=== PATIENT | male | born 1965 | race African-American/Black ===

== ENCOUNTER 2019-02-28 17:38 | Inpatient (IN) | payer SELFPAY ==
[2019-02-28] MEDS: METOPROLOL TAR 50 MG TAB PO SCH ×2 (09:00→23:30)
--- OUTSIDE RECORDS SUMMARY | 2019-02-28 17:40 | XMS REPORT ---
:1965 [facility] Address [address] [place] [address] Care Team Providers Name Role Phone Unavailable Unavailable Unavailable Problems This patient has no known problems. Allergies, Adverse Reactions, Alerts This patient has no known allergies or adverse reactions. Medications This patient has no known medications.
[2019-02-28 19:39] LABS: Absolute Lymphocytes (CBC) 1.8 K/uL (0.7-4.9); Basophils % 1.3 % (0-1.3); Hematocrit 41.1 % (39.6-49.0); Lymphocytes % 19.3 % (15.3-44.8); MPV 10.7 fL (7.6-11.3); RBC Red Blood Cell Count 4.52 M/uL (4.33-5.43)
[2019-02-28 19:41] LABS: Protime INR 1.11
--- NOTE | 2019-02-28 19:55 | RAD REPORT ---
EXAM DESCRIPTION: RAD - Chest Pa And Lat (2 Views) - 02/28/2019 7:46 pm CLINICAL HISTORY: COUGH Chest pain. COMPARISON: No comparisons FINDINGS: The lateral projection is quite limited due to motion artifact. Frontal projection demonst rates grossly clear lungs. The heart is moderately enlarged in size. No fracture evident.
[2019-02-28 20:01] LABS: Albumin 2.9 g/dL (3.4-5.0); Bilirubin Direct 0.2 mg/dL (0-0.2); Bilirubin Total 0.6 mg/dL (0.2-1.0); Magnesium 1.7 mg/dL (1.8-2.4); Protein, Total 7.3 g/dL (6.4-8.2)
[2019-02-28 20:03] LABS: Potassium 2.7 mmol/L (3.5-5.1)
[2019-02-28 20:04] LABS: Troponin (Emerg Dept Use Only) 1.81 ng/mL (0.0-0.045)
[2019-02-28] MEDS ORDERED: POTASSIUM 25 MEQ EFFERV TAB ONE (20:16)
[2019-02-28] MEDS ORDERED: MAGNESIUM SULFATE 1 gm IVPB 1 GM/100 ML BAG IV ONE (20:16)
--- NOTE | 2019-02-28 20:21 | EDPHYS ---
Physician Documentation [facility] Name: Maximilian Majano Age: 54 yrs Sex: Male : 1965 Arrival Date: 02/28/2019 Time: 17:42 Bed 28 Private MD: ED Physician Errol Eng HPI: 02/28 18:59 This 54 yrs old Black Male presents to ER via Ambulatory with complaints of Cough, pm1 Congestion, Hemopytsis. 18:59 The patient or guardian reports cough, with productive sputum, that is bloody. Onset: pm1 The symptoms/episode began/occurred 3 day(s) ago. Severity of symptoms: in the emergency department the symptoms are actually worse. Modifying factors: The symptoms are alleviated by nothing, the symptoms are aggravated by nothing. Associated signs and symptoms: Pertinent negatives: chest pain, fever, sore throat, shortness of breath. The patient has not recently seen a physician, out of town. Patient with history of CHF that reports cough, congestion and hemoptysis for the past 3 days. Denies any chest pain, shortness of breath, or fever. Reports similar presentation with onset and diagnosis of CHF about 6 years ago. Historical: - Allergies: 18:05 No Known Allergies; aa5 - PMHx: 18:05 Hypertension; CHF; aa5 - PSHx: 18:05 L shoulder; Abdominal mass removed; Carpal Tunnel Repair; aa5 - Immunization history:: Flu vaccine is not up to date. - Social history:: Smoking status: Patient/guardian denies using tobacco. - Ebola Screening: : No symptoms or risks identified at this time. ROS: 18:59 Constitutional: Negative for fever, chills, and weight loss, Eyes: Negative for injury, pm1 pain, redness, and discharge, ENT: Negative for injury, pain, and discharge, Neck: Negative for injury, pain, and swelling, Cardiovascular: Negative for chest pain, palpitations, and edema. 18:59 Abdomen/GI: Negative for abdominal pain, nausea, vomiting, diarrhea, and constipation, Back: Negative for injury and pain, : Negative for injury, bleeding, discharge, and swelling, MS/Extremity: Negative for injury and deformity, Skin: Negative for injury, rash, and discoloration, Neuro: Negative for headache, weakness, numbness, tingling, and seizure. 18:59 Respiratory: Positive for cough, hemoptysis, Negative for shortness of breath, wheezing. Exam: 18:59 Constitutional: This is a well developed, well nourished patient who is awake, alert, pm1 and in no acute distress. Head/Face: Normocephalic, atraumatic. Eyes: Pupils equal round and reactive to light, extra-ocular motions intact. Lids and lashes normal. Conjunctiva and sclera are non-icteric and not injected. Cornea within normal limits. Periorbital areas with no swelling, redness, or edema. ENT: Nares patent. No nasal discharge, no septal abnormalities noted. Tympanic membranes are normal and external auditory canals are clear. Oropharynx with no redness, swelling, or masses, exudates, or evidence of obstruction, uvula midline. Mucous membranes moist. Neck: Trachea midline, no thyromegaly or masses palpated, and no cervical lymphadenopathy. Supple, full range of motion without nuchal rigidity, or vertebral point tenderness. No Meningismus. Chest/axilla: Normal chest wall appearance and motion. Nontender with no deformity. No lesions are appreciated. Cardiovascular: Regular rate and rhythm with a normal S1 and S2. No gallops, murmurs, or rubs. Normal PMI, no JVD. No pulse deficits. 18:59 Abdomen/GI: Soft, non-tender, with normal bowel sounds. No distension or tympany. No guarding or rebound. No evidence of tenderness throughout. Back: No spinal tenderness. No costovertebral tenderness. Full range of motion. Skin: Warm, dry with normal turgor. Normal color with no rashes, no lesions, and no evidence of cellulitis. MS/ Extremity: Pulses equal, no cyanosis. Neurovascular intact. Full, normal range of motion. 18:59 Respiratory: the patient does not display signs of respiratory distress, Respirations: normal, Breath sounds: rales, are located in both bases. 18:59 Neuro: Orientation: is normal, Motor: is normal, moves all fours. Vital Signs: 18:05 BP 153 / 101; Pulse 83; Resp 18 S; Temp 98.5(O); Pulse Ox 96% on R/A; Weight 140.16 kg aa5 (R); Height 5 ft. 8 in. (172.72 cm) (R); 19:30 BP 154 / 97; Pulse 74; Resp 18 S; Pulse Ox 98% on R/A; Pain 0/10; cc3 20:31 BP 158 / 97; Pulse 73; Resp 17 S; Pulse Ox 96% on R/A; cc3 21:35 BP 143 / 85; Pulse 70; Resp 17 S; Pulse Ox 96% on R/A; cc3 22:30 BP 130 / 74; Pulse 70; Resp 17 S; Pulse Ox 96% on R/A; Pain 0/10; cc3 18:05 Body Mass Index 46.98 (140.16 kg, 172.72 cm) aa5 MDM: 18:36 Patient medically screened. pm1 20:16 Data reviewed: vital signs. Data interpreted: Pulse oximetry: on room air is 96 %. pm1 Interpretation: normal. Counseling: I had a detailed discussion with the patient and/or guardian regarding: the historical points, exam findings, and any diagnostic results supporting the discharge/admit diagnosis, lab results, radiology results, the need for further work-up and treatment in the hospital. 02/28 18:46 Order name: Basic Metabolic Panel; Complete Time: 20:06 pm1 02/28 18:46 Order name: CBC with Diff; Complete Time: 20:03 pm1 02/28 18:46 Order name: LFT's; Complete Time: 20:06 pm1 02/28 18:46 Order name: Magnesium; Complete Time: 20:06 pm1 02/28 18:46 Order name: NT PRO-BNP; Complete Time: 20:06 pm1 02/28 18:46 Order name: PT-INR; Complete Time: 20:03 pm1 02/28 18:46 Order name: Troponin (emerg Dept Use Only); Complete Time: 20:06 pm1 02/28 22:01 Order name: CBC with Automated Diff EDMS 02/28 22:01 Order name: CBC with Automated Diff EDMS 02/28 22:01 Order name: Comprehensive Metabolic Panel EDMS 02/28 22:01 Order name: Comprehensive Metabolic Panel EDMS 02/28 22:01 Order name: Magnesium EDMS 02/28 22:01 Order name: Magnesium EDMS 02/28 22:01 Order name: Phosphorus EDMS 02/28 18:46 Order name: EKG; Complete Time: 18:47 pm1 02/28 18:46 Order name: Chest Pa And Lat (2 Views) XRAY; Complete Time: 20:03 pm1 02/28 20:59 Order name: CT Chest For PE Angio pm1 02/28 22:00 Order name: CONS Physician Consult EDMS 02/28 22:00 Order name: Echo with Doppler EDMS 02/28 22:01 Order name: Phosphorus EDMS 02/28 22:01 Order name: NT PRO-BNP EDMS 02/28 22:01 Order name: NT PRO-BNP EDMS 02/28 22:01 Order name: Troponin I EDMS 02/28 22:01 Order name: Troponin I; Complete Time: 23:40 EDMS 02/28 22:01 Order name: Troponin I EDMS 03/01 04:12 Order name: Urine Dipstick-Ancillary; Complete Time: 04:13 EDMS 02/28 18:46 Order name: Cardiac monitoring; Complete Time: 19:10 pm1 02/28 18:46 Order name: EKG - Nurse/Tech; Complete Time: 19:24 pm1 02/28 18:46 Order name: IV Saline Lock; Complete Time: 19:24 pm1 02/28 18:46 Order name: Labs collected and sent; Complete Time: 19:24 pm1 02/28 18:46 Order name: O2 Per Protocol; Complete Time: 19:11 pm1 02/28 18:46 Order name: O2 Sat Monitoring; Complete Time: 19:11 pm1 02/28 22:00 Order name: CONS Physician Consult EDAZ 02/28 22:00 Order name: Heart Healthy EDAZ 02/28 22:00 Order name: EKG Electrocardiogram EDAZ 02/28 22:00 Order name: EKG Electrocardiogram EDAZ Administered Medications: 20:15 Drug: Potassium Effervescent Tablet 50 mEq Route: PO; cc3 20:30 Follow up: Response: No adverse reaction cc3 20:20 Drug: Magnesium Sulfate 1 grams Route: IVPB; Infused Over: 1 hrs; Site: right cc3 antecubital; 22:00 Follow up: Response: No adverse reaction; IV Status: Completed infusion; IV Intake: cc3 100ml 20:35 Drug: Aspirin 325 mg Route: PO; cc3 21:00 Follow up: Response: No adverse reaction cc3 20:40 Drug: Furosemide 40 mg Route: IVP; Site: right antecubital; cc3 21:00 Follow up: Response: No adverse reaction cc3 Disposition: 03/02 08:09 Co-signature as Attending Physician, Errol Eng MD I agree with the assessment and kdr plan of care. Disposition: 02/28/19 20:19 Hospitalization ordered by Lan Goff for Observation. Preliminary diagnosis are Acute on chronic combined systolic (congestive) and diastolic (congestive) heart failure, Hemoptysis. - Bed requested for Telemetry/MedSurg (observation). - Status is Observation. aa5 - Condition is Stable. - Problem is new. - Symptoms have improved. UTI on Admission? No Signatures: Dispatcher [employer] EDMS Errol Eng MD MD [facility] Brielle Fry RN RN aa5 Jodi Blake RN RN cg John Lind, DARLENE THIRD RIGGER pm1 Cherelle Ruvalcaba cc3 Corrections: (The following items were deleted from the chart) 02/28 21:59 20:19 Hospitalization Ordered by Lan Goff MD for Observation. Preliminary cg diagnosis is Acute on chronic combined systolic (congestive) and diastolic (congestive) heart failureHemoptysis. Bed requested for Telemetry/MedSurg (observation). Status is Observation. Condition is Stable. Problem is new. Symptoms have improved. UTI on Admission? No. pm1 03/01 05:24 02/28 21:59 02/28/2019 20:19 Hospitalization Ordered by Lan Goff MD for cg Observation. Preliminary diagnosis is Acute on chronic combined systolic (congestive) and diastolic (congestive) heart failureHemoptysis. Bed requested for [facility] ER HOLD. Status is Observation. Condition is Stable. Problem is new. Symptoms have improved. UTI on Admission? No. cg 03/01 08:29 05:24 02/28/2019 20:19 Hospitalization Ordered by Lan Goff MD for Observation. aa5 Preliminary diagnosis is Acute on chronic combined systolic (congestive) and diastolic (congestive) heart failureHemoptysis. Bed requested for Telemetry/MedSurg (observation). Status is Observation. Condition is Stable. Problem is new. Symptoms have improved. UTI on Admission? No. cg
--- NOTE | 2019-02-28 20:21 | ER ---
Nurse's Notes [facility] Name: Maximilian Majano Age: 54 yrs Sex: Male : 1965 Arrival Date: 02/28/2019 Time: 17:42 Bed 28 [facility] [place] MD: Diagnosis: Hemoptysis;Acute on chronic combined systolic (congestive) and diastolic (congestive) heart failure Presentation: 02/28 18:03 Presenting complaint: Patient states: cough and chest congestion that began 2-3 days aa5 ago. Transition of care: patient was not received from another setting of care. Onset of symptoms was January 2019. Risk Assessment: Do you want to hurt yourself or someone else? Patient reports no desire to harm self or others. Initial Sepsis Screen: Does the patient meet any 2 criteria? No. Patient's initial sepsis screen is negative. Does the patient have a suspected source of infection? No. Patient's initial sepsis screen is negative. Care prior to arrival: None. 18:03 Method Of Arrival: Ambulatory aa5 18:03 Acuity: HEMALATHA 3 aa5 Historical: - Allergies: 18:05 No Known Allergies; aa5 - PMHx: 18:05 Hypertension; CHF; aa5 - PSHx: 18:05 L shoulder; Abdominal mass removed; Carpal Tunnel Repair; aa5 - Immunization history:: Flu vaccine is not up to date. - Social history:: Smoking status: Patient/guardian denies using tobacco. - Ebola Screening: : No symptoms or risks identified at this time. Screenin:10 Abuse screen: Denies threats or abuse. Abuse screen: Denies injuries from another. ca1 Nutritional screening: No deficits noted. Tuberculosis screening: No symptoms or risk factors identified. Fall Risk None identified. Assessment: 18:10 General: Appears in no apparent distress. comfortable, Behavior is calm, cooperative, ca1 appropriate for age. Pain: Denies pain. Neuro: Level of Consciousness is awake, alert, obeys commands, Oriented to person, place, time, situation. Cardiovascular: Heart tones S1 S2 present Capillary refill < 3 seconds Patient's skin is warm and dry. Edema is 1+ to left ankle and right ankle. Respiratory: Sputum is thin, blood streaked. Respiratory: Reports cough that is persistent since a year ago since diagnosed with CHF. But the past few days, mucous secretions have increased and there is blood with the phlegm, as stated by pt Airway is patent Respiratory effort is even, unlabored, Respiratory pattern is regular, symmetrical, Breath sounds are coarse in left posterior lower lobe, right posterior middle lobe and right posterior lower lobe. GI: Abdomen is round non-distended, Bowel sounds present X 4 quads. Abd is soft and non tender X 4 quads. : No deficits noted. No signs and/or symptoms were reported regarding the genitourinary system. EENT: Denies nasal congestion, nasal discharge. Derm: Skin is intact, is healthy with good turgor, Skin is pink, warm \T\ dry. Musculoskeletal: Circulation, motion, and sensation intact. Capillary refill < 3 seconds, Range of motion: intact in all extremities. 19:15 Reassessment: Patient appears in no apparent distress at this time. Patient and/or cc3 family updated on plan of care and expected duration. Pain level reassessed. Patient is alert, oriented x 3, equal unlabored respirations, skin warm/dry/pink. Received this female patient from morning shift BOO Benitez as a case of cough, congestion. General: Appears in no apparent distress. comfortable, Behavior is calm, cooperative, appropriate for age. Pain: Denies pain. Neuro: Level of Consciousness is awake, alert, obeys commands, Oriented to person, place, time, situation, Appropriate for age. Cardiovascular: Denies chest pain, Heart tones S1 S2 present Capillary refill < 3 seconds in bilateral fingers Patient's skin is warm and dry. Edema is 1+ to right ankle and left ankle. Respiratory: Reports cough that is persistent Airway is patent Respiratory effort is even, unlabored, Respiratory pattern is regular, symmetrical, Sputum is thin, blood streaked, Breath sounds are coarse bilaterally. GI: Abdomen is round non-distended, Bowel sounds present X 4 quads. Abd is soft and non tender X 4 quads. : No signs and/or symptoms were reported regarding the genitourinary system. EENT: Denies nasal congestion, nasal discharge. Derm: Skin is intact, is healthy with good turgor, Skin is normal, black. Musculoskeletal: Circulation, motion, and sensation intact. Range of motion: intact in all extremities. 20:18 Reassessment: Patient appears in no apparent distress at this time. Patient and/or cc3 family updated on plan of care and expected duration. Pain level reassessed. Patient is alert, oriented x 3, equal unlabored respirations, skin warm/dry/pink. Patient denies pain at this time. 21:20 Reassessment: Patient appears in no apparent distress at this time. Patient and/or cc3 family updated on plan of care and expected duration. Pain level reassessed. Patient is alert, oriented x 3, equal unlabored respirations, skin warm/dry/pink. Patient denies pain at this time. 22:00 Reassessment: Patient appears in no apparent distress at this time. Patient and/or cc3 family updated on plan of care and expected duration. Pain level reassessed. Patient is alert, oriented x 3, equal unlabored respirations, skin warm/dry/pink. Patient is ER Hold, charting continued in [facility]. Patient denies pain at this time. Vital Signs: 18:05 BP 153 / 101; Pulse 83; Resp 18 S; Temp 98.5(O); Pulse Ox 96% on R/A; Weight 140.16 kg aa5 (R); Height 5 ft. 8 in. (172.72 cm) (R); 19:30 BP 154 / 97; Pulse 74; Resp 18 S; Pulse Ox 98% on R/A; Pain 0/10; cc3 20:31 BP 158 / 97; Pulse 73; Resp 17 S; Pulse Ox 96% on R/A; cc3 21:35 BP 143 / 85; Pulse 70; Resp 17 S; Pulse Ox 96% on R/A; cc3 22:30 BP 130 / 74; Pulse 70; Resp 17 S; Pulse Ox 96% on R/A; Pain 0/10; cc3 18:05 Body Mass Index 46.98 (140.16 kg, 172.72 cm) aa5 ED Course: 17:42 Patient arrived in ED. mr 18:02 Arm band placed on. aa5 18:04 Triage completed. aa5 18:07 Eli Dawkins, BOO is Primary Nurse. ca1 18:07 John Lind NP is PHCP. pm1 18:07 Errol Eng MD is Attending Physician. pm1 18:10 Patient has correct armband on for positive identification. Bed in low position. Call ca1 light in reach. Side rails up X 1. Pulse ox on. NIBP on. Warm blanket given. 19:25 Inserted saline lock: 20 gauge in right antecubital area, using aseptic technique. mt Blood collected. 19:47 Chest Pa And Lat (2 Views) XRAY In Process Unspecified. EDMS 20:04 Notified Nurse Practitioner and/or Physician Ux Information Architect of a critical lab result(s), bb Potassium of 2.7, Troponin of 1.81 John Lind NP notified. 20:18 Lan Goff MD is Hospitalizing Provider. pm1 21:25 Inserted saline lock: 22 gauge in left hand, using aseptic technique. inserted by CT cc3 certified medication technician Debra. 21:29 CT completed. Patient tolerated procedure well. Patient moved to CT via stretcher. nj Patient moved back from CT. 21:35 IV discontinued, intact, bleeding controlled, No redness/swelling at site. Pressure cc3 dressing applied. 21:38 CT Chest For PE Angio In Process Unspecified. EDMS 22:00 No provider procedures requiring assistance completed. cc3 03/01 00:00 Report given to BOO Zambrano. cc3 08:23 EKG done, by certified hyperbaric technologist. reviewed by Beto Sanchez MD. at1 Administered Medications: 02/28 20:15 Drug: Potassium Effervescent Tablet 50 mEq Route: PO; cc3 20:30 Follow up: Response: No adverse reaction cc3 20:20 Drug: Magnesium Sulfate 1 grams Route: IVPB; Infused Over: 1 hrs; Site: right cc3 antecubital; 22:00 Follow up: Response: No adverse reaction; IV Status: Completed infusion; IV Intake: cc3 100ml 20:35 Drug: Aspirin 325 mg Route: PO; cc3 21:00 Follow up: Response: No adverse reaction cc3 20:40 Drug: Furosemide 40 mg Route: IVP; Site: right antecubital; cc3 21:00 Follow up: Response: No adverse reaction cc3 Intake: 22:00 IV: 100ml; Total: 100ml. cc3 Outcome: 20:19 Decision to Hospitalize by Provider. pm1 22:00 Admitted to ER Hold. [facility] cc3 22:00 Condition: stable 22:00 Instructed on the need for admit, Demonstrated understanding of instructions. 03/01 08:27 Admitted to Tele accompanied by tech, via stretcher, with chart, Report called to aa5 [place] Condition: stable 08:29 Patient left the ED. aa5 Signatures: Dispatcher [employer] [facility] Asha De Los Santos mr TonjaLore, RN RN bb Brielle Fry RN RN aa5 Kathe Roca, accounts receivable assistant EKG Tat1 John Lind, FINAL INSPECTOR BALANCE WHEEL FINAL INSPECTOR BALANCE WHEEL pm1 Tanner Patricia, [facility] Cherelle Ruvalcaba cc3 Eli Dawkins RN RN ca1 Corrections: (The following items were deleted from the chart) 02/28 19:14 18:10 Respiratory: Reports cough that is persistent since a year ago since diagnosed ca1 with CHF. But the past few days, mucous secretions have increased and there is blood with the phlegm, as stated by pt Airway is patent Respiratory effort is even, unlabored, Respiratory pattern is regular, symmetrical, Breath sounds are clear bilaterally. ca1
[2019-02-28] MEDS ORDERED: ASPIRIN EC 325 MG TABLET PO ONE (20:43)
[2019-02-28] MEDS ORDERED: FUROSEMIDE 40 MG/4 ML VIAL ONE (20:43)
[2019-02-28] MEDS ORDERED: ACETAMINOPHEN 500 MG TAB PO PRN (21:54)
[2019-02-28] MEDS ORDERED: ONDANSETRON 4 MG/2 ML VIAL IV PRN (21:54)
[2019-02-28] MEDS ORDERED: D5W 1,000 ML with NA BICARB 8.4% 50 MEQ IV SCH ×2 (22:00)
[2019-02-28] MEDS ORDERED: D5W 1,000 ML IV ONE (23:28)
[2019-02-28] MEDS ORDERED: SODIUM BICARB 50 MEQ/50ML VIAL ONE (23:30)
[2019-02-28] MEDS ORDERED: METOPROLOL TAR 50 MG TAB ONE (23:56)
[2019-03-01 04:11] LABS: Urine Blood TRACE (NEG); Urine Glucose NEGATIVE (NEG); Urine Protein 2+ (NEG); Urine Specific Gravity 1.015 (1.005-1.030); Urine pH 7.5 (5.0-7.0)
[2019-03-01 05:20] LABS: Absolute Lymphocytes (CBC) 2.4 K/uL (0.7-4.9); Basophils % 1.4 % (0-1.3); Hematocrit 39.6 % (39.6-49.0); Lymphocytes % 26.8 % (15.3-44.8); RBC Red Blood Cell Count 4.36 M/uL (4.33-5.43)
[2019-03-01 05:50] LABS: Albumin 2.7 g/dL (3.4-5.0); Bilirubin Total 0.6 mg/dL (0.2-1.0); Magnesium 1.8 mg/dL (1.8-2.4); Phosphorus 2.7 mg/dL (2.5-4.9); Protein, Total 6.8 g/dL (6.4-8.2)
[2019-03-01 05:51] LABS: Potassium 2.7 mmol/L (3.5-5.1)
[2019-03-01] MEDS ORDERED: ALBUTEROL 2.5 MG/3 ML NEB SOL NEB PRN (06:26)
[2019-03-01] MEDS ORDERED: IPRATROPIUM BROM 0.5MG/2.5ML NEB PRN (06:26)
[2019-03-01] MEDS ORDERED: POTASSIUM 25 MEQ EFFERV TAB PO ONE (06:50)
[2019-03-01] MEDS ORDERED: HYDROCORTISONE SUC 100 MG INJ IV ONE (06:50)
[2019-03-01] MEDS ORDERED: PIPER/TAZO/NS 3.375gm 3.375 GM/100 ML BAG IVPB SCH ×2 (07:45→08:00)
[2019-03-01] MEDS ORDERED: INFLUENZA VACCINE (for 3y+) 0.5 ML DOSE IMVAC ONE (08:00)
--- NOTE | 2019-03-01 08:02 | EKG ---
Test Date: 2019-02-28 Test Time: 19:22:26 Milk Drying Machine Operator: HARPREET MEASUREMENT RESULTS: Intervals: Rate: 74 LA: 200 QRSD: 146 QT: 456 QTc: 506 [place]: P: 47 LA: 200 QRS: 8 T: 151 INTERPRETIVE STATEMENTS: Sinus rhythm with frequent premature ventricular complexes Left bundle branch block Abnormal ECG Compared to ECG 06/13/1997 08:01:00 Ventricular premature complex(es) now present Left bundle-branch block now present Sinus arrhythmia no longer present Electronically Signed On 03-01-19 08:01:10 LINES TENDER by Damien Singer
[2019-03-01] MEDS ORDERED: POTASSIUM 25 MEQ EFFERV TAB PO SCH (09:00)
[2019-03-01] MEDS: METOPROLOL TAR 50 MG TAB PO SCH ×3 (09:00→20:48)
--- NOTE | 2019-03-01 10:17 | RAD REPORT ---
EXAM DESCRIPTION: Chest For Pe Angio CLINICAL HISTORY: HEMOPTYSIS TECHNIQUE: Contiguous axial images obtained through the chest during angiographic phase following th e uneventful administration of IV contrast. Sagittal and coronal reformatted images were provided. OH P reformatted images were provided. This exam was performed according to our departmental dose-optimization program, which includes autom ated exposure control, adjustment of the mA and/or kV according to patient size and/or use of iterati ve reconstruction technique. COMPARISON: No prior exams provided for comparison. FINDINGS: Diagnostic quality: There is good opacification of the pulmonary arterial tree. Motion art ifact degrades image quality and limits evaluation of segmental and subsegmental vessels. Lungs: Multifocal groundglass opacification within the lingula and left greater than right lower lobe s. Airways are patent. Pleura: No effusion. No pneumothorax. Heart and pericardium: The heart is enlarged. No pericardial effusion. Mediastinum and criss: Mildly enlarged mediastinal lymph nodes measuring up to 14 mm in short axis. Lower neck and chest wall: Unremarkable Vessels: No pulmonary arterial filling defects. No thoracic aortic aneurysm. Upper abdomen: Unremarkable Bones: Unremarkable IMPRESSION: 1. Motion artifact degrades image quality and limits evaluation of segmental and subse gmental vessels. No central or proximal segmental pulmonary embolic disease. 2. Multifocal infiltrates within the lingula and left greater than right lower lobes. 3. Other findings as above. Electronically signed by: Keya Bah MD 02/28/2019 10:05 PM FRONT END DRIVER Due to temporary technical issues with the PACS/Fluency reporting system, reports are being signed by the in house radiologist as a courtesy to ensure prompt reporting. The interpreting radiologist is f ully responsible for the content of the report.
--- NOTE | 2019-03-01 10:21 | P.HP ---
Certification for Inpatient Patient admitted to: Inpatient With expected LOS: >2 Midnights Patient will require the following post-hospital care: None Practitioner: I am a practitioner with admitting privileges, knowledge of patient current condition, hospital course, and medical plan of care. Services: Services provided to patient in accordance with Admission requirements found in Title 42 Section 412.3 of the Code of Federal Regulations Patient History Date of Service: 02/28/19 Reason for admission: HEMOPTYSIS History of Present Illness: PATIENT IS A 54-YEAR-OLD GENTLEMAN WHO CAME TO THE HOSPITAL WITH COUGH AND CONGESTION. PATIENT WAS COUGHING UP BLOOD. THIS STARTED ABOUT 48 HOURS AGO. HE SAID HE GOT BETTER ON THURSDAY, BUT HAS STARTED BACK UP THURSDAY. HE DECIDED TO COME TO THE EMERGENCY ROOM FOR FURTHER EVALUATION. HE LIVES IN [place] AND HIS PRIMARY CARE PROVIDER IS DR. HIRSCH. HE WAS DIAGNOSED WITH CONGESTIVE HEART FAILURE ABOUT A YEAR AND A HALF AGO. SINCE THAT TIME HE HAS LOST ABOUT 40 -50 LB. HE HAS BEEN DOING BETTER. HE IS NO LONGER RETAINING FLUID. HE CAME INTO THE EMERGENCY ROOM BECAUSE OF THE HEMOPTYSIS. IN THE ER HIS WORKUP REVEALED CARDIOMEGALY WITH PULMONARY EDEMA. HE WAS ADMITTED TO THE HOSPITAL FOR FURTHER WORKUP. CT SCAN DID NOT REVEAL A PULMONARY EMBOLISM NOR DID REVEAL A MASS. PATIENT HAD BILATERAL PNEUMONIA. PATIENT WILL BE ADMITTED TO THE HOSPITAL FOR FURTHER WORKUP. Allergies No Known Allergies Allergy (Unverified 02/28/19 22:36) Home Medications: Amlodipine [Norvasc] 10 mg PO DAILY 03/01/19 Furosemide 2 tab PO BID 03/01/19 Hydralazine HCl [Apresoline] 50 mg PO BID 03/01/19 Nebivolol HCl [Bystolic*] 1 tab PO DAILY 03/01/19 Potassium Chloride 20 meq PO BID 03/01/19 - Past Medical/Surgical History Has patient received pneumonia vaccine in the past: No -: Hypertension -: CHF -: left shoulder x 2 -: left wrist - Family History Father Medical History: Kidney disease Mother Medical History: Heart disease, Hypertension - Social History Smoking Status: Never smoker Alcohol use: Yes CD- Drugs: No Caffeine use: Yes Place of Residence: Home Review of Systems 10-point ROS is otherwise unremarkable Physical Examination - Vital Signs Temperature: 98.3 F Blood Pressure: 167/95 Pulse: 73 Respirations: 18 Pulse Ox (%): 94 - Physical Exam General: Alert, In no apparent distress, Oriented x3 HEENT: Atraumatic, PERRLA, Mucous membr. moist/pink, EOMI, Sclerae nonicteric Neck: Supple, 2+ carotid pulse no bruit, No LAD, Without JVD or thyroid abnormality Respiratory: Diminished, Rhonchi/gurgles Cardiovascular: Regular rate/rhythm, Normal S1 S2, No murmurs Gastrointestinal: Normal bowel sounds, Soft and benign, Non-distended, No tenderness, No rebound, No guarding Musculoskeletal: No clubbing, No swelling, No tenderness Integumentary: No rashes Neurological: Normal gait, Normal speech, Normal strength at 5/5 x4 extr, Normal tone, Sensation intact, Cranial nerves 3-12 intact, Normal affect Lymphatics: No axilla or inguinal lymphadenopathy - Studies Laboratory Data (last 24 hrs) 02/28/19 19:05: PT 13.0 H, INR 1.11 02/28/19 19:05: WBC 9.0, Hgb 13.9, Hct 41.1, Plt Count 242 02/28/19 19:05: Sodium 142, Potassium 2.7 L*, BUN 13, Creatinine 1.39 H, Glucose 199 H, Magnesium 1.7 L, Total Bilirubin 0.6, AST 16, ALT 20, Alkaline Phosphatase 88 Assessment & Plan - Problems (Diagnosis) (1) Pneumonia Current Visit: Yes Status: Acute (2) Acute exacerbation of congestive heart failure Current Visit: Yes Status: Acute (3) Cardiomegaly Current Visit: Yes Status: Acute - Plan PLAN: 1. CONTINUE WITH IV ANTIBIOTICS 2. AWAITING SPUTUM AND BLOOD CULTURE; PROCALCITONIN LEVEL 3. REPEAT CHEST X-RAY IN AM 4. ECHOCARDIOGRAM TO REASSESS CARDIAC FUNCTIONING 5. PULMONARY CONSULTATION 6. CONTINUE WITH NEBS NEEDED 7. O2 PER PROTOCOL 8. CONTINUE WITH GENTLE HYDRATION 9. REPEAT LABS INCLUDING CBC AND RENAL FUNCTION IN A.M. 10. CARDIOLOGY CONSULTATION 11. GI AND DVT PROPHYLAXIS Discharge Plan: Home Plan to discharge in: Greater than 2 days - Advance Directives Does patient have a Living Will: Yes Does patient have a Durable POA for Healthcare: No Critical Care: No Time Spent Managing PTS Care (In Minutes): 45
--- NOTE | 2019-03-01 11:08 | CON ---
Identification: 54-year-old man. Chief Complaint: Hemoptysis. History Of Present Illness: Mr. Majano has a history of congestive heart failure with normal eject ion fraction since 2007. He had a cardiac cath and other tests done on the floor. He did not have c oronary heart disease then. He has not had any chest pain now. He was told that his congestive hear t failure was caused by untreated hypertension. Since then, he has been doing a very good job at [facility] lowing a low-sodium diet. He has lost quite a bit of weight since then and trying to lose more. He has been good about taking his outpatient diuretic medications. He has not had any followup with a c ardiologist in several years. He sees a primary care doctor in [place]. He reports no allergies. His outpatient medications have been, there are none listed as of now. Apparently, they include a di uretic. He denies any fevers, chills, or sweats. Physical Examination: General: He is obese, alert, oriented, pleasant. Constitutional: 5 feet 8 inches, 308 pounds. HEENT: Normal. Lungs: Clear. Cardiac: Within normal limits. Abdomen: Soft. Extremities: Normal. Laboratory Data: CT angio of the chest is negative for pulmonary embolus. It is positive for infilt rates in the left lingula, left lower lobe. His EKG shows sinus rhythm, frequent PVCs, left bundle-b ranch block. Impression: The patient has no congestive heart failure, that may be pneumonia. He will be getting diuresis. Add antibiotics. He will have a consultation with Dr. Young as well regarding the hemop tysis. DANISHA/TINO Voice ID: [id number] Report ID: [id number]
[2019-03-01] MEDS: Levofloxacin500mg IV 500 MG/100 ML BAG IV SCH (11:27)
--- NOTE | 2019-03-01 11:29 | ECHO ---
HEIGHT: 5 ft 8 in WEIGHT: 308 lb 0 oz DATE OF STUDY: 03/01/[address]: Lan Goff MD 2-DIMENSIONAL: YES M.MODE: YES DOPPLER: YES COLOR FLOW: YES TDS: NO PORTABLE: NO DEFINITY: NO BUBBLE STUDY: NO DIAGNOSIS: CONGESTIVE HEART FAILURE CARDIAC HISTORY: CATHERIZATION: NO SURGERY: NO PROSTHETIC VALVE: NO PACEMAKER: NO MEASUREMENTS (cm) DIASTOLIC (NORMALS) SYSTOLIC (NORMALS) IVSd 1.3 (0.6-1.2) LA Diam 6.2 (1.9-4.0) LVEF 24% LVIDd 8.6 (3.5-5.7) LVIDs 7.6 (2.0-3.5) %FS 12% LVPWd 1.5 (0.6-1.2) Ao Diam 3.3 (2.0-3.7) 2 DIMENSIONAL ASSESSMENT: RIGHT ATRIUM: NORMAL LEFT ATRIUM: DILATED RIGHT VENTRICLE: NORMAL LEFT VENTRICLE: DILATED TRICUSPID VALVE: NORMAL MITRAL VALVE: NORMAL PULMONIC VALVE: NORMAL AORTIC VALVE: NORMAL PERICARDIAL EFFUSION: NONE AORTIC ROOT: NORMAL LEFT VENTRICULAR WALL MOTION: SEVERE GLOBAL HYPOKINESIS. DOPPLER/COLOR FLOW: MILD MITRAL REGURGITATION. COMMENTS: SEVERELY DEPRESSED LEFT VENTRICULAR EJECTION FRACTION. DILATED LEFT ATRIUM AND LEFT VENTRICLE. MILD MITRAL REGURGITATION. TECHNOLOGIST: SARAH VALDIVIA
--- NOTE | 2019-03-01 11:30 | EKG ---
Test Date: 2019-03-01 Test Time: 08:18:17 Hoop Rolls Operator: SONA MEASUREMENT RESULTS: Intervals: Rate: 78 GA: 162 QRSD: 144 QT: 450 QTc: 513 [place]: P: 49 GA: 162 QRS: 12 T: 179 INTERPRETIVE STATEMENTS: Sinus rhythm with premature supraventricular complexes with occasional premature ventricular complexes Left bundle branch block Abnormal ECG Compared to ECG 02/28/2019 19:22:26 Atrial premature complex(es) now present Electronically Signed On 03-01-19 11:29:13 PSYCHIATRIC SOCIAL WORKER by Damien Singer
[2019-03-01] MEDS: FUROSEMIDE 40 MG/4 ML VIAL IV SCH ×2 (11:31→18:24)
--- NOTE | 2019-03-01 12:31 | P.CNS ---
Date of Consult: 03/01/19 Chief Complaint: HEMOPTYSIS History of Present Illness: PT is 54 yrs old. AW hemoptysis for thepast 2 days. No fever ro chills. Never smoked. No Hx of pulmonary complaints. No prior Hx of hemoptysis. Allergies No Known Allergies Allergy (Unverified 02/28/19 22:36) Home Medications: Amlodipine [Norvasc] 10 mg PO DAILY 03/01/19 Furosemide 2 tab PO BID 03/01/19 Hydralazine HCl [Apresoline] 50 mg PO BID 03/01/19 Nebivolol HCl [Bystolic*] 1 tab PO DAILY 03/01/19 Potassium Chloride 20 meq PO BID 03/01/19 - Past Medical/Surgical History -: Hypertension -: CHF -: left shoulder x 2 -: left wrist - Family History Father Medical History: Kidney disease Mother Medical History: Heart disease, Hypertension - Social History Alcohol use: Yes CD- Drugs: No Caffeine use: Yes Place of Residence: Home Review of Systems 10-point ROS is otherwise unremarkable Physical Examination Temp Pulse Resp BP Pulse Ox 98.3 F 73 18 159/96 H 94 03/01/19 10:23 03/01/19 11:31 03/01/19 10:23 03/01/19 11:31 03/01/19 10:23 General: Alert, Oriented x3 Neck: Supple, No Thyromegaly Respiratory: Clear to auscultation bilaterally, Dull Cardiovascular: Regular rate/rhythm, Normal S1 S2, Edema ( 1 plus) Gastrointestinal: Normal bowel sounds, Soft and benign Laboratory Data (last 24 hrs) 02/28/19 19:05: PT 13.0 H, INR 1.11 02/28/19 19:05: WBC 9.0, Hgb 13.9, Hct 41.1, Plt Count 242 02/28/19 19:05: Sodium 142, Potassium 2.7 L*, BUN 13, Creatinine 1.39 H, Glucose 199 H, Magnesium 1.7 L, Total Bilirubin 0.6, AST 16, ALT 20, Alkaline Phosphatase 88 - Problems (1) Hemoptysis Current Visit: Yes Status: Acute Plan: Tp is 54 yrs of age Aw hemoptysis for thepast 2 days. No other complaints. HX of CHF and HTN. Hypokalemic. Renal functon has improved.BNP elevated. ILD on CXRY Pathcy infiltatreates R>L. Poss CHF. Add spironolactone K replacement. D/ C Zosyn. Troponin elevated ECHO severe CHF. No risk factors for cancer. Tx with PO levaquin poss D/C home am andF/u with me in 2 wks Denies symptoms of [place].
[2019-03-01 12:33] LABS: Potassium 2.7 mmol/L (3.5-5.1)
[2019-03-01] MEDS: SPIRONOLACTONE 25 MG TABLET PO SCH ×2 (13:37→20:47)
--- NOTE | 2019-03-01 16:40 | P.PN ---
Subjective Date of Service: 03/01/19 Chief Complaint: HEMOPTYSIS Subjective: No new changes Patient states he feels better today. He denies any hemoptysis. He denies any chest pain or shortness of breath. Echocardiogram reported EF of 24%. Patient seen and evaluated by cardiology and pulmonology. He currently has no complain. Noted his troponin elevated but stable. Physical Examination - Vital Signs Temperature: 97.7 F Blood Pressure: 131/84 Pulse: 76 Respirations: 18 Pulse Ox (%): 92 - Physical Exam General: Alert, In no apparent distress, Oriented x3 HEENT: Atraumatic, Normocephalic, PERRLA, Mucous membr. moist/pink, Sclerae nonicteric Neck: Supple, JVD not distended Respiratory: Normal air movement, Crackles/rales (Bibasilar crackles, worse on the left) Cardiovascular: No edema, Normal pulses, Regular rate/rhythm, Normal S1 S2, No murmurs Capillary refill: <2 Seconds Gastrointestinal: Normal bowel sounds, Soft and benign, Non-distended, No tenderness Musculoskeletal: No swelling, No erythema Integumentary: No rashes Neurological: Normal speech, Normal strength at 5/5 x4 extr - Studies Laboratory Data (last 24 hrs) 02/28/19 19:05: PT 13.0 H, INR 1.11 02/28/19 19:05: WBC 9.0, Hgb 13.9, Hct 41.1, Plt Count 242 02/28/19 19:05: Sodium 142, Potassium 2.7 L*, BUN 13, Creatinine 1.39 H, Glucose 199 H, Magnesium 1.7 L, Total Bilirubin 0.6, AST 16, ALT 20, Alkaline Phosphatase 88 Assessment And Plan - Current Problems (Diagnosis) (1) Acute exacerbation of congestive heart failure Current Visit: Yes Status: Acute (2) Cardiomegaly Current Visit: Yes Status: Acute (3) Hemoptysis Current Visit: Yes Status: Acute (4) Pneumonia Current Visit: Yes Status: Acute - Plan Differential diagnosis for hemoptysis include CHF and pneumonia. Patient has had no fever or chest pain or shortness of breath. CTA thorax is negative for pulmonary embolus. Elevated troponin likely secondary to demand ischemia. Low suspicion for ACS. Continuing diuresis with IV Lasix. Continue IV Levaquin. Patient is on Entresto, metoprolol and Aldactone for severe heart failure. Daily weight, intake and output monitoring. Cardiology and pulmonary input appreciated. Aggressive blood pressure management. Hydralazine IV p.r.n. for BP spikes.
[2019-03-01] MEDS ORDERED: POTASSIUM CL SA 10 MEQ TAB PO ONE ×2 (18:00→22:30)
[2019-03-01] MEDS: POTASSIUM CL SA 10 MEQ TAB PO SCH (20:47)
[2019-03-01] MEDS: SACUBITRIL/VALSARTAN 49/51 MG TAB PO SCH (20:47)
[2019-03-01] MEDS: HYDRALAZINE HCL 25 MG TABLET PO SCH (20:47)
[2019-03-01] MEDS ORDERED: FUROSEMIDE 40 MG TABLET PO SCH (21:00)
[2019-03-02 04:36] LABS: Absolute Lymphocytes (CBC) 2.7 K/uL (0.7-4.9); Basophils % 1.3 % (0-1.3); Hematocrit 42.3 % (39.6-49.0); Lymphocytes % 27.4 % (15.3-44.8); MPV 10.9 fL (7.6-11.3); RBC Red Blood Cell Count 4.63 M/uL (4.33-5.43)
[2019-03-02 04:46] LABS: Potassium 3.1 mmol/L (3.5-5.1)
[2019-03-02] MEDS ORDERED: POTASSIUM CL SA 10 MEQ TAB PO ONE (05:14)
[2019-03-02 05:16] VITALS: O2SAT 92
[2019-03-02] MEDS: POTASSIUM CL SA 10 MEQ TAB PO SCH (08:34)
[2019-03-02] MEDS: Levofloxacin500mg IV 500 MG/100 ML BAG IV SCH (08:35)
[2019-03-02] MEDS: HYDRALAZINE HCL 25 MG TABLET PO SCH (08:35)
[2019-03-02] MEDS: SACUBITRIL/VALSARTAN 49/51 MG TAB PO SCH (08:35)
[2019-03-02] MEDS: FUROSEMIDE 40 MG/4 ML VIAL IV SCH (08:35)
[2019-03-02] MEDS: METOPROLOL TAR 50 MG TAB PO SCH (08:36)
[2019-03-02] MEDS: SPIRONOLACTONE 25 MG TABLET PO SCH (08:36)
[2019-03-02] MEDS ORDERED: NEBIVOLOL HCL 20 MG TABLET PO SCH (09:00)
[2019-03-02] MEDS ORDERED: AMLODIPINE 10 MG TAB PO SCH (09:00)
[2019-03-02 09:52] VITALS: BMI 46.5
--- NOTE | 2019-03-02 11:15 | PN ---
Mr. Majano seems to be doing well. He reports that metoprolol had to be stopped because he gets so me kind of a mental change. It is hard for him to sleep, so I asked him to try Coreg at much smaller dose and I believe he could be discharged taking Entresto, spironolactone, Lasix, and amlodipine and have outpatient followup. DANISHA/TINO Voice ID: [id number] Report ID: [id number]
--- NOTE | 2019-03-02 11:22 | P.PN ---
Subjective Date of Service: 03/02/19 Chief Complaint: HEMOPTYSIS Subjective: Improving (Patient is doing well still has some minimal hemoptysis shortness of breath has improved spironolactone is helping) Review of Systems Unremarkable Physical Examination - Vital Signs Temperature: 97.4 F Blood Pressure: 142/91 Pulse: 73 Respirations: 18 Pulse Ox (%): 93 - Physical Exam General: Alert, Oriented x3 Respiratory: Clear to auscultation bilaterally Cardiovascular: No edema, Normal pulses Assessment & Plan - Problems (Diagnosis) (1) Hemoptysis Current Visit: Yes Status: Acute Plan: Patient is a mA purposes is probably a combination office volume overload possible pneumonia. In the no significant risk factors for lung cancer does not smoke. Cultures are so far negative labs reviewed recommend discharging him on spironolactone and levofloxacin follow up with me in 2 weeks continue with Lasix
--- NOTE | 2019-03-02 11:40 | P.DS ---
Admission Date: 02/28/19 Discharge Date: 03/02/19 Disposition: ROUTINE DISCHARGE Discharge Condition: GOOD Reason for Admission: HEMOPTYSIS Consultations: Cardiology-Dr. Singer Pulmonology-Dr. Howard - Problems (1) Acute exacerbation of congestive heart failure Current Visit: Yes Status: Acute (2) Cardiomegaly Current Visit: Yes Status: Acute (3) Hemoptysis Current Visit: Yes Status: Acute (4) Pneumonia Current Visit: Yes Status: Acute Brief History of Present Illness: 54-year-old gentleman with a history of congestive heart failure presented to the ED with a complaint of cough with hemoptysis. He denied any chest pain or shortness of breath. CT angiogram of the thorax done reported bilateral opacities in the lungs suggestive of CHF versus pneumonia. No pulmonary embolism identified. Initial troponin was mildly elevated. Patient was admitted for further management. Hospital Course: Patient was treated with IV Lasix for diuresis. He was seen by cardiology and pulmonology. Echocardiogram done reported an EF of 24%. Troponin trended was flat and there was low suspicion for ACS. He was also treated with IV antibiotics. The cough and hemoptysis resolved with treatment. Dr. Singer had a discussion with him regarding Life vest and AICD placement. Patient plans to have this discussion with his package dye stand loader Dr. Davey as soon as possible. Patient is asymptomatic today. He is deemed clinically stable for discharge. Vital Signs/Physical Exam: Temp Pulse Resp BP Pulse Ox 97.4 F 73 18 142/91 H 93 03/02/19 11:22 03/02/19 11:22 03/02/19 11:22 03/02/19 11:22 03/02/19 11:22 General: Alert, In no apparent distress, Oriented x3 HEENT: Mucous membr. moist/pink Neck: Supple, JVD not distended Respiratory: Clear to auscultation bilaterally, Normal air movement Cardiovascular: No edema, Regular rate/rhythm, Normal S1 S2 Capillary refill: <2 Seconds Gastrointestinal: Normal bowel sounds, Soft and benign, Non-distended, No tenderness Musculoskeletal: No swelling, No erythema Integumentary: No rashes Neurological: Normal speech, Normal strength at 5/5 x4 extr Laboratory Data at Discharge: WBC 9.7 K/uL (4.3-10.9) 03/02/19 04:01 Hgb 14.1 g/dL (13.6-17.9) 03/02/19 04:01 Hct 42.3 % (39.6-49.0) 03/02/19 04:01 Plt Count 268 K/uL (152-406) 03/02/19 04:01 PT 13.0 SECONDS (9.5-12.5) H 02/28/19 19:05 INR 1.11 02/28/19 19:05 Sodium 143 mmol/L (136-145) 03/02/19 04:01 Potassium 3.1 mmol/L (3.5-5.1) L 03/02/19 04:01 BUN 13 mg/dL (7-18) 03/02/19 04:01 Creatinine 1.27 mg/dL (0.55-1.3) 03/02/19 04:01 Glucose 145 mg/dL (74-106) H 03/02/19 04:01 Phosphorus 2.7 mg/dL (2.5-4.9) 03/01/19 05:08 Magnesium 1.8 mg/dL (1.8-2.4) 03/01/19 05:08 Total Bilirubin 0.6 mg/dL (0.2-1.0) 03/01/19 05:08 AST 18 U/L (15-37) 03/01/19 05:08 ALT 17 U/L (12-78) 03/01/19 05:08 Alkaline Phosphatase 76 U/L (45-117) 03/01/19 05:08 Troponin I 1.78 ng/mL (0.0-0.045) H* 03/01/19 05:08 Home Medications: Amlodipine [Norvasc*] 10 mg PO DAILY 03/01/19 Furosemide 2 tab PO BID 03/01/19 Hydralazine HCl [Apresoline] 50 mg PO BID 03/01/19 Nebivolol HCl [Bystolic*] 1 tab PO DAILY 03/01/19 Potassium Chloride 20 meq PO BID 03/01/19 Hydralazine [Apresoline*] 25 mg PO DAILY PRN #30 tab 03/02/19 Sacubitril/Valsartan [Entresto 49 mg-51 mg Tablet] 1 tab PO BID #60 tab Spironolactone [Aldactone*] 25 mg PO BID #60 tab 03/02/19 levoFLOXacin [Levaquin] 750 mg PO DAILY #7 tab 03/02/19 New Medications: Hydralazine [Apresoline*] 25 mg PO DAILY PRN #30 tab PRN Reason: SBP>160 or DBP>110 levoFLOXacin [Levaquin] 750 mg PO DAILY #7 tab Sacubitril/Valsartan [Entresto 49 mg-51 mg Tablet] 1 tab PO BID #60 tab Spironolactone [Aldactone*] 25 mg PO BID #60 tab Diet: AHA Activity: Ad frances Followup: Joel Tidwell DO [OUTSIDE PHYSICIAN] - 1 Week Yoseph Davey MD [OUTSIDE PHYSICIAN] - 1-2 Weeks Puneet Howard MD [ACTIVE - CAN ADMIT] - 1-2 Weeks
[2019-03-02 12:40] VITALS: BP 129/79; TEMP 97
[2019-03-02] MEDS ORDERED: ENOXAPARIN 40 MG/0.4 ML SQ SCH (17:00)
[2019-03-02] MEDS ORDERED: carvediloL 6.25 MG TAB PO SCH (21:00)
== END 2019-03-02 14:05 | disposition home or self-care (01) | DRG 291 ==
LOC: ER 17:38 → ERHOLD 21:54 → 4TH 03-01 07:26
PROVIDERS: ADMIT Hospitalist; ATTEND Internal Medicine
DX: I50.9 Heart failure, unspecified (principal); J18.9 Pneumonia, unspecified organism; R04.2 Hemoptysis; I11.0 Hypertensive heart disease with heart failure; I44.7 Left bundle-branch block, unspecified
CPT/HCPCS: 36415; 71046; 71275; 80048; 80053; 80076; 81003; 83735; 83880; 84100; 84132; 84484; 85025; 85610; 87070; 87205; 93005; 93306; 96365; 96366; 96375; 99285; J1650; J1720; J1940; J2543; J3475; Q9967